=== PATIENT | female | born 1945 | race Caucasian/White ===

== ENCOUNTER 2020-11-15 06:03 | Outpatient (REF) | payer MEDICARE, SELFPAY ==
[2020-11-15 07:25] LABS: Cholesterol 210 mg/dL; HDL Cholesterol 57 mg/dL; LDL Cholesterol Calculated 129 mg/dl; Triglycerides 123 mg/dL
[2020-11-15 07:49] LABS: Free T4 (Free Thyroxine) 1.03 ng/dL (0.71-1.85); Thyroid Stimulating Hormone 2.37 uIU/mL (0.32-4.0)
== END 2020-11-15 06:04 | disposition home or self-care (01) ==
LOC: HO.LAB 06:03
PROVIDERS: Visit Provider Internal Medicine
DX: E03.9 Hypothyroidism, unspecified (principal); E78.5 Hyperlipidemia, unspecified; M19.041 Primary osteoarthritis, right hand; M19.042 Primary osteoarthritis, left hand; Z78.0 Asymptomatic menopausal state
CPT/HCPCS: 36415; 80061; 82306; 84439; 84443

== ENCOUNTER 2021-05-11 09:05 | Outpatient (REF) | payer MEDICARE, SELFPAY ==
--- NOTE | ~2021-05-11 | MM_ITS ---
EXAMINATION: BONE DENSITOMETRY CLINICAL INDICATION: Menopause. COMPARISON: Previous BD dated 01/02/2019 and baseline BD dated 01/29/2009. TECHNIQUE: Using a [employer] DXA System (software version: 13.1) manufactured by [employer], dual-energy x-ray absorptiometry was performed of the lumbar spine and left hip. The images are of good technical quality. Summary results are attached. FINDINGS: AP SPINE L1-L2 (excluding L3 and L4): The data of L1-L4 has been changed to exclude the L3 and L4 vertebral bodies, because degenerative changes at these levels may cause overestimation of lumbar spine density. Current: BMD 1.030 g/cm2, Z-score 0.9, T-score -1.1, osteopenia, 2.0% decrease from previous, 8.2% increase from baseline (<5% change is not significant). Prior: BMD 1.051 g/cm2. Baseline: BMD 0.952 g/cm2. LEFT FEMUR, NECK: Current: BMD 0.916 g/cm2, Z-score 1.3, T-score -0.9, normal. Prior: BMD 0.925 g/cm2. Baseline: BMD 0.918 g/cm2. LEFT FEMUR, TOTAL: Current: BMD 1.062 g/cm2, Z-score 2.4, T-score 0.4, normal, 1.4% increase from previous, 3.5% increase from baseline (<5% change is not significant). Prior: BMD 1.047 g/cm2. Baseline: BMD 1.026 g/cm2. IDENTIFIED RISK FACTORS: Menopause. HISTORY OF FRACTURE: None listed. MEDICATIONS: Calcium, vitamin D. MM/XR DEXA axial skeleton IMPRESSION: 1. DIAGNOSIS: Osteopenia based on the lowest T-score value of -1.1 in the lumbar spine applying World Health Organization criteria. 2. 10-YEAR FRACTURE RISK PREDICTION, FRAX: Major osteoporotic fracture (clinical spine, forearm, hip or shoulder) 10.6%. Hip fracture 1.8%. 3. Treatment Recommendations: NOF guidelines recommend consideration for treatment in postmenopausal women and men age 50 and older presenting with the following: -A hip or vertebral (clinical or morphometric) fracture. -T-score less than or equal to -2.5 at the femoral neck or spine after appropriate evaluation to exclude secondary causes. -Low bone mass at the hip or spine and a 10-year fracture probability by FRAX of greater than or equal to 3% for hip fracture or greater than or equal to 20% for major osteoporotic fracture based on the [place] adapted WHO algorithm. 4. Other Recommendations: All treatment decisions require clinical judgment and consideration of individual patient factors, including patient preferences, comorbidities, previous drug use, risk factors not captured in the FRAX model (e.g. frailty, falls, vitamin D deficiency, increased bone turnover, interval significant decline in bone density) and possible under or overestimation of fracture risk by FRAX. Additional medical evaluation for secondary cause of low bone mineral density may be appropriate. FUTURE SCAN RECOMMENDATION: People with diagnosed cases of osteoporosis or at high risk for fracture should have regular bone mineral density tests. For patients eligible for Medicare, routine testing is allowed once every 2 years. The testing frequency can be increased to one year for patients who have rapidly progressing disease, those who are receiving or discontinuing medical therapy to restore bone mass, or have additional risk factors.
--- NOTE | ~2021-05-11 | MM_ITS ---
EXAMINATION: MM SCREENING DIGITAL BREAST TOMOSYNTHESIS, BILATERAL CLINICAL INFORMATION: Screening. Asymptomatic. The lifetime risk of breast cancer based on the Tyrer-Cuzick Model is 2%. COMPARISON: Mammography: 01/02/2019, 05/25/2017, 04/21/2016 TECHNIQUE: Digital breast tomosynthesis is performed in both the craniocaudal and mediolateral oblique views along with computer-aided detection (CAD). Synthesized 2D images are generated from the tomosynthesis. FINDINGS: There are scattered areas of fibroglandular density (ACR BI-RADS breast composition Category b). There are no significant masses, abnormal calcifications, or other abnormalities. Parenchymal pattern is similar to prior studies. No developing density. The axilla and skin contours are unremarkable. MM/MM tomosynthesis screening BI IMPRESSION: No mammographic evidence of malignancy. ASSESSMENT: BI-RADS 1: Negative RECOMMENDATION: Routine annual mammography screening. This patient's information was entered into a reminder system with a target due date for their next mammogram.
== END 2021-05-11 09:06 | disposition home or self-care (01) ==
LOC: HO.MAMMO 09:05
PROVIDERS: Visit Provider Internal Medicine
DX: Z12.31 Encounter for screening mammogram for malignant neoplasm of breast (principal); Z13.820 Encounter for screening for osteoporosis; M85.80 Other specified disorders of bone density and structure, unspecified site; Z78.0 Asymptomatic menopausal state; Z79.899 Other long term (current) drug therapy
CPT/HCPCS: 77063; 77067; 77080

== ENCOUNTER 2021-05-31 06:03 | Outpatient (REF) | payer MEDICARE, SELFPAY ==
[2021-05-31 07:10] LABS: MANUAL DIFF FLAG NO
[2021-05-31 07:17] LABS: Basophils Percent Auto 0.3 % (0-2); Eosinophils Absolute Auto 0.3 X10*3/uL (0.0-0.4); Eosinophils Percent Auto 3.7 % (0-4); Hematocrit 39.5 % (37-47); Hemoglobin 12.6 g/dl (12.0-16.0); Imm Gran Abs Auto 0.02 X10*3/uL (0.00-0.03); Imm Gran Pct Auto 0.3 % (0.0-0.4); Lymphocytes Percent Auto 41.1 % (20-40); Mean Corpuscular HGB Conc 31.9 g/dl (31.0-35.0); Mean Corpuscular Hemoglobin 29.6 pg (27.0-33.0); Mean Corpuscular Volume 92.9 fL (80-98); Mean Platelet Volume 9.7 fL (9.4-12.3); Monocytes Absolute Auto 0.7 X10*3/uL (0.1-1.2); Monocytes Percent Auto 9.6 % (2-11); Neutrophils Absolute Auto 3.3 X10*3/uL (2.0-8.3); Platelet Count 207 X10*3/uL (160-400); Red Blood Count 4.25 X10*6/uL (4.20-5.50); Red Cell Distribution Width 13.2 % (11.0-16.0); White Blood Count 7.4 X10*3/uL (4.8-10.8)
[2021-05-31 08:02] LABS: Free T4 (Free Thyroxine) 1.06 ng/dL (0.71-1.85); Thyroid Stimulating Hormone 2.48 uIU/mL (0.32-4.0); Vitamin D 25-OH Total 63.4 ng/mL (>30)
== END 2021-05-31 06:04 | disposition home or self-care (01) ==
LOC: HO.LAB 06:03
PROVIDERS: PCP Internal Medicine; Visit Provider Internal Medicine
DX: E03.9 Hypothyroidism, unspecified (principal); Z78.0 Asymptomatic menopausal state
CPT/HCPCS: 36415; 82306; 84439; 84443; 85025

== ENCOUNTER 2022-07-06 05:59 | Outpatient (REF) | payer MEDICARE, SELFPAY ==
[2022-07-06 07:52] LABS: Cholesterol 251 mg/dL; HDL Cholesterol 55 mg/dL; LDL Cholesterol Calculated 166 mg/dl; Triglycerides 154 mg/dL
[2022-07-06 08:17] LABS: Free T4 (Free Thyroxine) 0.98 ng/dL (0.71-1.85); Thyroid Stimulating Hormone 3.02 uIU/mL (0.32-4.0); Vitamin D 25-OH Total 63.3 ng/mL (>30)
== END 2022-07-06 06:00 | disposition home or self-care (01) ==
LOC: HO.LAB 05:59
PROVIDERS: PCP Internal Medicine; Visit Provider Internal Medicine
DX: E03.9 Hypothyroidism, unspecified (principal); M85.88 Other specified disorders of bone density and structure, other site; N95.9 Unspecified menopausal and perimenopausal disorder
CPT/HCPCS: 36415; 80061; 82306; 84439; 84443

== ENCOUNTER 2022-12-29 06:02 | Outpatient (REF) | payer MEDICARE, SELFPAY ==
[2022-12-29 07:42] LABS: Anion Gap 14 (12-20); Blood Urea Nitrogen 11 mg/dL (9-16); Calcium 10.2 mg/dL (8.4-10.2); Carbon Dioxide 26 mmol/L (22-29); Chloride 105 mmol/L (96-108); Estimated Glomerular Filt Rate > 60; Glucose Fasting 107 mg/dL (60-99); Potassium 4.4 mmol/L (3.3-5.1); Sodium 141 mmol/L (135-145)
[2022-12-29 08:04] LABS: Free T4 (Free Thyroxine) 0.93 ng/dL (0.71-1.85); Thyroid Stimulating Hormone 3.15 uIU/mL (0.32-4.0); Vitamin D 25-OH Total 59.4 ng/mL (>30)
== END 2022-12-29 06:03 | disposition home or self-care (01) ==
LOC: HO.LAB 06:02
PROVIDERS: PCP Internal Medicine; Visit Provider Internal Medicine
DX: E03.9 Hypothyroidism, unspecified (principal); M85.88 Other specified disorders of bone density and structure, other site; Z78.0 Asymptomatic menopausal state
CPT/HCPCS: 36415; 80048; 82306; 84439; 84443

== ENCOUNTER 2023-01-01 10:24 | Outpatient (AMB) | payer MEDICARE, SELFPAY ==
--- NOTE | 2023-01-01 10:58 | A.OFFPC_ITS ---
Vital Signs 01/01/23 11:14 Height 5 ft 1 in Weight 138 lb BMI 26.0 BP 110/70 Blood Pressure Location Lt brachial Position Sitting Pulse 69 Pulse Source Pulse Oximeter Pulse Oximetry (%) 99 Oxygen Delivery Method Room Air Intake Visit Reasons: 6 month ffup thyroid Intake Note: Pt is here today for her 6 months f/u thyroid Allergies No Known Allergies Allergy (Verified 01/01/23 11:29) Medication List - Last Reconciled 01/01/23 by Barby Mckoy MD calcium carbonate (Calcium) 600 mg PO DAILY cholecalciferol (vitamin D3) 50 mcg PO DAILY levothyroxine 50 mcg PO DAILY Tobacco use date assessed: 01/01/23 Fall risk assessment: No Falls in past year Last assessed Fall Risk: 01/01/23 HPI 6 month ffup thyroid HPI Details 78-year-old lady with hypothyroidism, he re today for her follow-up. She has been doing well on present levothyroxine dose, at 50 mcg daily, with latest thyroid levels within normal limits. She has osteopenia of lumbar spine, due for repeat bone density scan. No history of fractures Has been having intermittent episodes of joint stiffness and pain in fingers of both hands, as well as decreased range of motion in left shoulder joint specially in abduction due to pain. History of trauma or strenuous exertion. Has a recurrent slightly pruritic rash under both breasts and inguinal area worse with warm weather [facility] Medical History (Updated 11/15/23 @ 16:56 by Barby Mckoy MD) Tendinitis of left shoulder Osteopenia of lumbar spine Osteoarthritis of fingers of both hands Breast cancer screening by mammogram Menopause Acquired hypothyroidism Surgical History No pertinent past surgical history Family History Father Medical history non-contributory Mother Medical history non-contributory Brother No problems noted. Brother No problems noted. Son No problems noted. Daughter No problems noted. Social History Housing: House Alcohol intake: never Patient Tobacco Use Status: Never used Tobacco e-Cigarette/Vaping Use: Never Used Second Hand Smoke Exposure: No Current occupational status: unemployed Cognitive needs: No Hearing needs: No Vision needs: No Questionnaire PHQ-9 Over the last 2 weeks, how often have you been bothered by any of the following problems? 1. Little interest or pleasure in doing things: more than half the days 2. Feeling down, depressed, or hopeless: not at all 3. Trouble falling or staying asleep, or sleeping too much: not at all 4. Feeling tired or having little energy: not at all 5. Poor appetite or overeating: not at all 6. Feeling bad about yourself - or that you are a failure or have let yourself or your family down: not at all 7. Trouble concentrating on things, such as reading the newspaper or watching television: not at all 8. Moving or speaking so slowly that other people could have noticed. Or the opposite - being so fidgety or restless that you have been moving around a lot more than usual: not at all 9. Thoughts that you would be better off or of hurting yourself in some way: not at all Total score: 2 Depression Screening Interpretation: Negative 79066 - PHQ-9 Billing: Yes Source: Developed by Drs. Abram Morfin, Erlinda Lindsay, Carlos Bueno and colleagues, with an educational fredy from [employer]. Thrive Questionnaire Declines Thrive assessment: No Date Thrive assessed: 01/01/23 I am a: Patient What is your living situation today?: I have a steady place to live Within the past 12 months, did the food you bought not last and you didn't have the money to get more?: Never true Within the past 12 months, did you worry whether your food would run out before you got money to buy more?: Never true Do you have trouble paying for medicines?: No Do you have trouble getting transportation to medical appointments?: No Do you have trouble paying your heating and electricity bill?: No Do you have trouble taking care of your child, family member or friend?: No Do you have trouble with day-to-day activities such as bathing, preparing meals, shopping, managing finances, etc.?: No Are you currently unemployed and looking for a job?: No Are you interested in more education?: No AUDIT C Alcohol Use Questionnaire (AUDIT-C) 1. How often do you have a drink containing alcohol?: Never Total Score: 0 ASHLEY-7 AMB Questionnaire ASHLEY-7 Date ASHLEY - 7 assessed: 01/01/23 Feeling nervous, anxious, or on edge: 0 = Not at all Not being able to stop or control worryin = Not at all Worrying too much about different things: 0 = Not at all Trouble relaxin = Not at all Being so restless that it is hard to sit still: 0 = Not at all Becoming easily annoyed or irritable: 0 = Not at all Feeling afraid as if something awful might happen: 0 = Not at all Total ASHLEY-7 score (0-4 normal; 5-9 mild; 10-14 moderate; 15-21 severe): 0 Source: Developed by Drs. Abram Morfin, Erlinda Lindsay, Carlos Bueno and colleagues, with an educational fredy from [employer]. ASHLEY-7 Assessment Billing ASHLEY-7 Assessment Tool: ASHLEY-7 Assessment 08486 Review of Systems Const Denies body aches, Denies fatigue, Denies fever(s), Denies headache(s) and Denies weakness ENT Denies dizziness, Denies headache(s), Denies nasal congestion, Denies nasal discharge and Denies sore throat Card Denies chest pain, Denies lightheadedness, Denies palpitations and Denies dyspnea Resp Denies chest congestion, Denies cough, Denies dyspnea and Denies wheezing GI Denies abdominal pain, Denies change in bowel habits and Denies heartburn Musc Reports as per HPI, Reports arthralgias (Fingers both hands and left shoulder), Denies joint swelling, Denies muscle weakness and Reports stiffness Skin/Breast Denies lesions and Denies rash Neuro Denies dizziness, Denies headache(s) and Denies weakness Endo Denies fatigue, Denies polydipsia, Denies polyuria and Denies palpitations Corey/Lymph Denies easy bruising Aller/Immun Denies seasonal rhinorrhea and Denies wheezing Physical exam (Primary Care) Vital Signs: Last Vital Signs Pulse 69 01/01/23 11:14 BP 110/70 01/01/23 11:14 Pulse Ox 99 01/01/23 11:14 Oxygen Delivery Method Room Air 01/01/23 11:14 BMI result Body Mass Index 26.0 Tobacco/Smoking Status: Tobacco use Status Tobacco use date assessed 01/01/23 01/01/23 11:01 Patient Tobacco Use Status Never used Tobacco 01/01/23 11:00 e-Cigarette/Vaping Use Never Used 01/01/23 11:00 PHQ-9: PHQ-9 Score PHQ-9: Total score 2 01/01/23 11:31 Depression Screening Interpretation: Negative Thrive Assessment: Date of Thrive Assessment Date Thrive assessed 01/01/23 01/01/23 11:19 Const General: cooperative, comfortable and no acute distress Orientation/consciousness: patient oriented x3 Limitations: no limitations [facility] General nose exam: No nasal discharge present Mouth: oropharynx normal and moist mucous membranes Eyes Pupils: Equal, round and reactive pupils present Neck Other: Thyroid nonpalpable Neck: Yes full ROM, Yes no lymphadenopathy and Yes supple Resp Effort & Inspection: normal respiratory effort and able to speak in complete sentences Auscultation: clear to auscultation bilaterally Cardio Rate: regular rate Rhythm: regular rhythm Heart sounds: S1 normal heart sound present and S2 normal heart sound present GI Inspection: Yes normal to inspection Palpation (GI): Soft to palpation, nontender and no masses Auscultation: normal bowel sounds Back/Spine/Pelvis Back: No back tenderness Skin Other: Erythematous patch under both breasts Neuro General: patient oriented x3, gait normal, tone normal, moves all extremities, Normal light touch and pain sensation and no focal motor deficits Cranial nerves: Yes Equal, round and reactive pupils present Cognition (Neuro): normal cognition Gait exam (Neuro): Normal gait present Motor exam (neuro): 5/5 motor strength present throughout Extrem Other: Positive Heberden's nodes noted in fingers of both hands right more than the left General: Yes full ROM, Yes no pedal edema and Yes normal gait Left upper extremity: shoulder/upper arm Details: abnormal ROM (Due to pain on abduction more than 90 degrees) Details: pain with active ROM Details: in ABduction Results Reviewed Results Reviewed: RUN: 01/01/23 1129 PAGE 1 [facility] [address] [place] [id number] Supervisor Scouring Pads: Yunior Mcqueen M.D. Specimen Inquiry Name: Clarisa Marina Age/Sex: 77/F : 1945 Unit#: [id number] Attend Dr: Barby Mckoy MD Re12/29/22 Status: DEP REF Location: .LAB Dis ch: SPEC : [id number] LEONEL: 12/29/22 STATUS: COMP REQ : [id number] RECD: 12/29/[address]: Barby Mckoy MD COMP: 12/29/22 ENTERED: 12/29/[address]: ORDERED: Met Prof Fast, Vitamin D 25-OH, Free T4, TSH Test Result Flag Reference Site Sodium 141 135-145 mmol/L Potassium 4.4 3.3-5.1 mmol/L CL 105 96-108 mmol/L CO2 26 22-29 mmol/L Gap 14 12-20 BUN 11 9-16 mg/dL Creat 0.80 0.5-1.4 mg/dL EGFR > 60 NOTE: For -[place]yr[place] individuals, multiply the result by 1.210. Chronic Kidney Disease: Estimated GFR < 60 mL/min/1.73m2 Severe Kidney Disease: Estimated GFR < 15 mL/min/1.73m2 FBS 107 H 60-99 mg/dL A fasting glucose from 100-125 mg/dl is considered impaired (pre-diabetes). CA 10.2 8.4-10.2 mg/dL Vit D 25-OH Tot 59.4 >30 ng/mL Health Based Reference Values* < 20 ng/mL Deficient 20-30 ng/mL Insufficient > 30 ng/mL Sufficient *Sandrita JULIAN. N Engl J Med. 2007;[id number]:266-280 Care must be taken in interpreting Vitamin D results from different laboratories and methodologies. Published data demonstrated that results from patients undergoing hemodialysis may show a negative bias when tested with various automated 25-OH vitamin D assays when compared to LC-MS/MS. When testing samples from patients whose predominant form of Vitamin D is Vitamin D2, such as patients receiving Vit ross D2 supplementation, results that are subtherapeutic should be confirmed with another method such as LC-MS/MS. Free T4 0.93 0.71-1.85 ng/dL TSH 3rd Gen. 3.15 0.32-4.0 uIU/mL Note: A sustained TSH level above 2.5 uIU/mL may warrant further investigation. TSH 3rd Generation ([facility]) Assessment and Plan Assessment & Plan (1) Osteopenia of lumbar spine: Code(s): M85.88 - Other specified disorders of bone density and structure, other site Plan: Ordered bone density scan, start taking vitamin-D 3 replacement least 2000 units daily, and adequate calcium from dietary sources, encouraged to do regular weight-bearing exercise (2) Osteoarthritis of fingers of both hands: Code(s): M19.041 - Primary osteoarthritis, right hand; M19.042 - Primary osteoarthritis, left hand Plan: May try taking Tylenol arthritis 650 mg per tablet to take 1 tablet every 8 hours as needed for joint pain or may try massaging diclofenac gel 1% to affected joints 3 to 4 times a day as needed. (3) Acquired hypothyroidism: Code(s): E03.9 - Hypothyroidism, unspecified Plan: Continue with current dose of levothyroxine (4) Tendinitis of left shoulder: Code(s): M77.8 - Other enthesopathies, not elsewhere classified Plan: Referred for physical therapy (5) Erythema intertrigo: Code(s): L30.4 - Erythema intertrigo Plan: Prescription sent for clotrimazole-betamethasone 1-0.05 % 1 appl topical BID PRN 15 grams 1RF rash 10 days Orders: Orders PT Evaluation and Treatment 01/01/23 M77.8 - Other enthesopathies, not elsewhere classified XR DEXA axial skeleton 05/15/23 M85.88 - Other specified disorders of bone density and structure, other site, N95.9 - Unspecified menopausal and perimenopausal disorder Medications: New clotrimazole-betamethasone 1-0.05 % 1 appl topical BID PRN 15 grams 1RF rash 10 days Refilled levothyroxine 50 mcg PO DAILY 90 tabs 3RF E03.9 - Hypothyroidism, unspecified cholecalciferol (vitamin D3) 50 mcg PO DAILY 90 caps 3RF M85.88 - Other specified disorders of bone density and structure, other site Coding Level of Care Code Est Pt Level 4 (50123) Diagnoses Osteopenia of lumbar spine M85.88 Osteoarthritis of fingers of both hands M19.041; M19.042 Acquired hypothyroidism E03.9 Tendinitis of left shoulder M77.8 Erythema intertrigo L30.4 Additional Codes ASHLEY-7 Assessment Billing - ASHLEY-7 Assessment Tool: ASHLEY-7 Assessment [id number] ([id number])
[2023-01-01 11:14] VITALS: BP 110/70; PULSE 69; O2SAT 99; BMI 26.0
== END 2023-01-01 11:54 | disposition home or self-care (01) ==
LOC: HO.HMGC 10:24
PROVIDERS: PCP Internal Medicine; Visit Provider Internal Medicine
DX: M85.88 Other specified disorders of bone density and structure, other site (principal); M19.041 Primary osteoarthritis, right hand; M19.042 Primary osteoarthritis, left hand; E03.9 Hypothyroidism, unspecified; M77.8 Other enthesopathies, not elsewhere classified; L30.4 Erythema intertrigo
CPT/HCPCS: 99214

== ENCOUNTER 2023-05-15 08:38 | Outpatient (REF) | payer MEDICARE, SELFPAY ==
--- NOTE | ~2023-05-15 | MM_ITS ---
EXAMINATION: BONE DENSITOMETRY CLINICAL INDICATION: Osteopenia. COMPARISON: Previous BD dated 05/11/2021 and baseline BD dated 01/29/2009. TECHNIQUE: Using a [employer] DXA System (software version: 13.1) manufactured by [employer], dual-energy x-ray absorptiometry was performed of the lumbar spine and left hip. The images are of good technical quality. Summary results are attached. FINDINGS: LEFT FEMUR, NECK: Current: BMD 0.976 g/cm2, Z-score 1.8, T-score -0.4, normal. Prior: BMD 0.916 g/cm2. Baseline: BMD 0.918 g/cm2. LEFT FEMUR, TOTAL: Current: BMD 1.084 g/cm2, Z-score 2.7, T-score 0.6, normal, 2.1% increase from previous, 5.7% increase from baseline (<5% change is not significant). Prior: BMD 1.062 g/cm2. Baseline: BMD 1.026 g/cm2. AP SPINE L1-L2 (excluding L3 and L4): The data of L1-L4 has been changed to exclude the L3 and L4 vertebral bodies, because degenerative sclerosis at these levels may cause overestimation of lumbar spine density. Current: BMD 0.982 g/cm2, Z-score 0.5, T-score -1.5, osteopenia, 4.7% decrease from previous, 3.2% increase from baseline (<5% change is not significant). Prior: BMD 1.030 g/cm2. Baseline: BMD 0.952 g/cm2. IDENTIFIED RISK FACTORS: Menopause. HISTORY OF FRACTURE: None listed. MEDICATIONS: Calcium. MM/XR DEXA axial skeleton IMPRESSION: 1. DIAGNOSIS: Osteopenia based on the lowest T-score value of -1.5 in the lumbar spine applying World Health Organization criteria. 2. 10-YEAR FRACTURE RISK PREDICTION, FRAX: Major osteoporotic fracture (clinical spine, forearm, hip or shoulder) 10.0%. Hip fracture 1.5%. 3. Treatment Recommendations: NOF guidelines recommend consideration for treatment in postmenopausal women and men age 50 and older presenting with the following: -A hip or vertebral (clinical or morphometric) fracture. -T-score less than or equal to -2.5 at the femoral neck or spine after appropriate evaluation to exclude secondary causes. -Low bone mass at the hip or spine and a 10-year fracture probability by FRAX of greater than or equal to 3% for hip fracture or greater than or equal to 20% for major osteoporotic fracture based on the [place] adapted WHO algorithm. 4. Other Recommendations: All treatment decisions require clinical judgment and consideration of individual patient factors, including patient preferences, comorbidities, previous drug use, risk factors not captured in the FRAX model (e.g. frailty, falls, vitamin D deficiency, increased bone turnover, interval significant decline in bone density) and possible under or overestimation of fracture risk by FRAX. Additional medical evaluation for secondary cause of low bone mineral density may be appropriate. FUTURE SCAN RECOMMENDATION: People with diagnosed cases of osteoporosis or at high risk for fracture should have regular bone mineral density tests. For patients eligible for Medicare, routine testing is allowed once every 2 years. The testing frequency can be increased to one year for patients who have rapidly progressing disease, those who are receiving or discontinuing medical therapy to restore bone mass, or have additional risk factors.
--- NOTE | ~2023-05-15 | MM_ITS ---
EXAMINATION: MM SCREENING DIGITAL BREAST TOMOSYNTHESIS, BILATERAL CLINICAL INFORMATION: Screening. Asymptomatic. The lifetime risk of breast cancer based on the Tyrer-Cuzick Model is 1.3%. COMPARISON: Mammography: This study is compared with prior exams dating back to 2019. TECHNIQUE: Digital breast tomosynthesis is performed in both the craniocaudal and mediolateral oblique views along with computer-aided detection (CAD). Synthesized 2D images are generated from the tomosynthesis. FINDINGS: There are scattered areas of fibroglandular density (ACR BI-RADS breast composition Category b). There are no significant masses, abnormal calcifications, or other abnormalities. MM/MM tomosynthesis screening BI IMPRESSION: No mammographic evidence of malignancy. ASSESSMENT: BI-RADS BI-RADS 1 - Negative RECOMMENDATION: Routine annual mammography screening. 1 year F/U This examination should not preclude the clinical evaluation of a suspicious palpable abnormality. This patient's information was entered into a reminder system with a target due date for their next mammogram.
== END 2023-05-15 08:39 | disposition home or self-care (01) ==
LOC: HO.MAMMO 08:38
PROVIDERS: PCP Internal Medicine; Visit Provider Internal Medicine
DX: Z12.31 Encounter for screening mammogram for malignant neoplasm of breast (principal); Z13.820 Encounter for screening for osteoporosis; Z78.0 Asymptomatic menopausal state; M85.88 Other specified disorders of bone density and structure, other site
CPT/HCPCS: 77063; 77067; 77080

== ENCOUNTER → 2023-05-15 09:00 | Outpatient (BNV) | payer MEDICARE, SELFPAY | PROVIDERS: PCP Internal Medicine; Visit Provider Radiology Diagnostic Radiology | DX: Z12.31 Encounter for screening mammogram for malignant neoplasm of breast (principal) | CPT/HCPCS: 77063; 77067 ==

== ENCOUNTER 2024-01-03 08:27 | Outpatient (AMB) | payer MEDICARE, SELFPAY ==
--- NOTE | 2024-01-03 08:30 | MHC.PC.OV ---
Vital Signs 01/03/24 08:31 Height 5 ft 1 in Weight 141 lb BMI 26.6 BP 122/68 Blood Pressure Location Lt brachial Position Sitting Pulse 72 Pulse Source Pulse Oximeter Pulse Oximetry (%) 97 Oxygen Delivery Method Room Air Intake Visit Reasons: 1yr follow up thyroid, requesting early Intake Note: Pt is here today for her f/u, pt didn't get labs done Allergies No Known Allergies Allergy (Verified 01/01/23 11:29) Medication List - Last Reconciled 07/23/24 by Barby Mckoy MD calcium carbonate (Calcium 600) 600 mg PO DAILY cholecalciferol (vitamin D3) 50 mcg PO DAILY clotrimazole-betamethasone 1-0.05 % 1 appl topical BID PRN 10 days levothyroxine 50 mcg PO DAILY Tobacco use date assessed: 01/03/24 Fall risk assessment: No Falls in past year Last assessed Fall Risk: 01/03/24 Dental Screening Dental Screen Date: 01/03/24 Did you have a dental visit in the last 12 months?: Yes Did you have a dental problem in the last 6 months where you did not have access to dental care?: No Was dental information given to patient?: Patient has dentist HPI 1yr follow up thyroid, requesting early HPI Details 78-year-old lady with acquired hypothyroidism, osteoarthritis, osteopenia lumbar spine and hyperlipidemia, here today for follow-up. Patient has been feeling well , compliant with taking her medications stays active. Patient also reports having recurrent pruritic rash under both breasts, usually appearing during warmer months [facility] Medical History (Updated 01/03/24 @ 09:15 by Barby Mckoy MD) Impaired fasting glucose Hyperlipidemia Tendinitis of left shoulder Osteopenia of lumbar spine Osteoarthritis of fingers of both hands Breast cancer screening by mammogram Menopause Acquired hypothyroidism Surgical History No pertinent past surgical history Family History Father Medical history non-contributory Mother Medical history non-contributory Brother No problems noted. Brother No problems noted. Son No problems noted. Daughter No problems noted. Social History Housing: House Alcohol intake: never Patient Tobacco Use Status: Never used Tobacco e-Cigarette/Vaping Use: Never Used Second Hand Smoke Exposure: No Current occupational status: unemployed Cognitive needs: No Hearing needs: No Vision needs: No Questionnaire PHQ-9 Over the last 2 weeks, how often have you been bothered by any of the following problems? 1. Little interest or pleasure in doing things: not at all 2. Feeling down, depressed, or hopeless: not at all 3. Trouble falling or staying asleep, or sleeping too much: not at all 4. Feeling tired or having little energy: not at all 5. Poor appetite or overeating: not at all 6. Feeling bad about yourself - or that you are a failure or have let yourself or your family down: not at all 7. Trouble concentrating on things, such as reading the newspaper or watching television: not at all 8. Moving or speaking so slowly that other people could have noticed. Or the opposite - being so fidgety or restless that you have been moving around a lot more than usual: not at all 9. Thoughts that you would be better off or of hurting yourself in some way: not at all Total score: 0 Depression Screening Interpretation: Negative Depression Screening Done: Yes 49557 - PHQ-9 Billing: Yes Source: Developed by Drs. Abram Morfin, Erlinda Lindsay, Carlos Bueno and colleagues, with an educational fredy from [employer]. Thrive Questionnaire Date Thrive assessed: 01/03/24 I am a: Patient What is your living situation today?: I have a steady place to live Within the past 12 months, did the food you bought not last and you didn't have the money to get more?: Never true Within the past 12 months, did you worry whether your food would run out before you got money to buy more?: Never true Do you have trouble paying for medicines?: No Do you have trouble getting transportation to medical appointments?: No Do you have trouble paying your heating and electricity bill?: No Do you have trouble taking care of your child, family member or friend?: No Do you have trouble with day-to-day activities such as bathing, preparing meals, shopping, managing finances, etc.?: No Are you currently unemployed and looking for a job?: No Are you interested in more education?: No THRIVE Score: 0 AUDIT C Alcohol Use Questionnaire (AUDIT-C) 1. How often do you have a drink containing alcohol?: Never Total Score: 0 ASHLEY-7 AMB Questionnaire ASHLEY-7 Date ASHLEY - 7 assessed: 01/03/24 Feeling nervous, anxious, or on edge: 0 = Not at all Not being able to stop or control worryin = Not at all Worrying too much about different things: 0 = Not at all Trouble relaxin = Not at all Being so restless that it is hard to sit still: 0 = Not at all Becoming easily annoyed or irritable: 0 = Not at all Feeling afraid as if something awful might happen: 0 = Not at all Total ASHLEY-7 score (0-4 normal; 5-9 mild; 10-14 moderate; 15-21 severe): 0 Source: Developed by Drs. Abram Morfin, Erlinda Lindsay, Carlos Bueno and colleagues, with an educational fredy from [employer]. ASHLEY-7 Assessment Billing ASHLEY-7 Assessment Tool: ASHLEY-7 Assessment 41563 Review of Systems Const Denies body aches, Denies fatigue, Denies fever(s), Denies headache(s) and Denies weakness ENT Denies dizziness, Denies headache(s), Denies nasal congestion, Denies nasal discharge and Denies sore throat Card Denies chest pain, Denies lightheadedness, Denies palpitations and Denies dyspnea Resp Denies chest congestion, Denies cough, Denies dyspnea and Denies wheezing GI Denies abdominal pain, Denies change in bowel habits and Denies heartburn Musc Reports as per HPI, Reports arthralgias (Fingers both hands and left shoulder), Denies joint swelling, Denies muscle weakness and Reports stiffness Skin/Breast Denies lesions and Denies rash Neuro Denies dizziness, Denies headache(s) and Denies weakness Endo Denies fatigue, Denies polydipsia, Denies polyuria and Denies palpitations Corey/Lymph Denies easy bruising Aller/Immun Denies seasonal rhinorrhea and Denies wheezing Physical exam (Primary Care) Vital Signs: Last Vital Signs Pulse 72 01/03/24 08:31 BP 122/68 01/03/24 08:31 Pulse Ox 97 01/03/24 08:31 Oxygen Delivery Method Room Air 01/03/24 08:31 BMI result Body Mass Index 26.6 Tobacco/Smoking Status: Tobacco use Status Tobacco use date assessed 01/03/24 01/03/24 08:34 Patient Tobacco Use Status Never used Tobacco 01/03/24 08:34 e-Cigarette/Vaping Use Never Used 01/03/24 08:34 PHQ-9: PHQ-9 Score PHQ-9: Total score 0 01/03/24 09:15 Depression Screening Interpretation: Negative Thrive Assessment: Date of Thrive Assessment Date Thrive assessed 01/03/24 01/03/24 08:34 Const General: cooperative, comfortable and no acute distress Orientation/consciousness: patient oriented x3 Limitations: no limitations HENMT General nose exam: No nasal discharge present Mouth: oropharynx normal and moist mucous membranes Eyes Pupils: Equal, round and reactive pupils present Neck Other: Thyroid nonpalpable Neck: Yes full ROM, Yes no lymphadenopathy and Yes supple Resp Effort & Inspection: normal respiratory effort and able to speak in complete sentences Auscultation: clear to auscultation bilaterally Cardio Rate: regular rate Rhythm: regular rhythm Heart sounds: S1 normal heart sound present and S2 normal heart sound present GI Inspection: Yes normal to inspection Palpation (GI): Soft to palpation, nontender and no masses Auscultation: normal bowel sounds Back/Spine/Pelvis Back: No back tenderness Skin Other: Erythematous slightly moist rash under both breasts Neuro General: patient oriented x3, gait normal, tone normal, moves all extremities, Normal light touch and pain sensation and no focal motor deficits Cranial nerves: Yes Equal, round and reactive pupils present Cognition (Neuro): normal cognition Gait exam (Neuro): Normal gait present Motor exam (neuro): 5/5 motor strength present throughout Extrem Other: Positive Heberden's nodes noted in fingers of both hands right more than the left General: Yes full ROM, Yes no pedal edema and Yes normal gait Left upper extremity: shoulder/upper arm Details: abnormal ROM (Due to pain on abduction more than 90 degrees) Details: pain with active ROM Details: in ABduction Coding Level of Care Code Est Pt Level 4 (97591) Complex EM visit Add On G2211 Diagnoses Impaired fasting glucose R73.01 Hyperlipidemia E78.5 Osteopenia of lumbar spine M85.88 Acquired hypothyroidism E03.9 Rash and nonspecific skin eruption R21 Additional Codes ASHLEY-7 Assessment Billing - ASHLEY-7 Assessment Tool: ASHLEY-7 Assessment 21240 ([id number])
[2024-01-03 08:31] VITALS: BP 122/68; PULSE 72; O2SAT 97; BMI 26.6
== END 2024-01-03 09:15 | disposition home or self-care (01) ==
PROVIDERS: Visit Provider Internal Medicine
DX: R73.01 Impaired fasting glucose (principal); E78.5 Hyperlipidemia, unspecified; M85.88 Other specified disorders of bone density and structure, other site; E03.9 Hypothyroidism, unspecified; R21 Rash and other nonspecific skin eruption
CPT/HCPCS: 99499

== ENCOUNTER 2024-01-04 06:00 | Outpatient (REF) | payer MEDICARE, SELFPAY ==
[2024-01-04 07:21] LABS: Alanine Aminotransferase 26 U/L (0-31); Anion Gap 10 (12-20); Aspartate Amino Transferase 25 U/L (5-31); Blood Urea Nitrogen 18 mg/dL (9-16); Calcium 9.7 mg/dL (8.4-10.2); Carbon Dioxide 29 mmol/L (22-29); Chloride 106 mmol/L (96-108); Cholesterol 238 mg/dL (<200); Estimated Glomerular Filt Rate > 60; Glucose Fasting 112 mg/dL (60-99); HDL Cholesterol 54 mg/dL (>40); LDL Cholesterol Calculated 159 mg/dL (<100); Potassium 4.4 mmol/L (3.3-5.1); Sodium 141 mmol/L (135-145); Triglycerides 128 mg/dL (<150)
[2024-01-04 07:41] LABS: Free T4 (Free Thyroxine) 0.85 ng/dL (0.71-1.85); Thyroid Stimulating Hormone 3.01 uIU/mL (0.32-4.0); Vitamin D 25-OH Total 58.2 ng/mL (>30)
== END 2024-01-04 06:01 | disposition home or self-care (01) ==
LOC: HO.LAB 06:00
PROVIDERS: PCP Internal Medicine; Visit Provider Internal Medicine
DX: E03.9 Hypothyroidism, unspecified (principal); R73.01 Impaired fasting glucose; E78.5 Hyperlipidemia, unspecified; M85.88 Other specified disorders of bone density and structure, other site; Z78.0 Asymptomatic menopausal state
CPT/HCPCS: 36415; 80048; 80061; 82306; 84439; 84443; 84450; 84460

== ENCOUNTER 2025-01-15 08:04 | Outpatient (AMB) | payer MEDICARE, SELFPAY ==
[2025-01-15 08:58] VITALS: BP 130/70; PULSE 62; RESP 16; TEMP 36.6; O2SAT 99; BMI 26.8
--- NOTE | 2025-01-15 08:58 | MHC.PC.OV ---
Vital Signs 01/15/25 08:58 Height 5 ft 1 in Weight 142 lb BMI 26.8 BP 130/70 Blood Pressure Location Rt brachial Position Sitting Respiration 16 Pulse 62 Pulse Source Pulse Oximeter Temp 97.9 F Temp Source Oral Pulse Oximetry (%) 99 Oxygen Delivery Method Room Air Intake Visit Reasons: Annual PE Intake Note: Pt is here today for her PE: Last mammogram 05/15/23, bone density scan 05/15/23 Allergies No Known Allergies Allergy (Verified 01/15/25 09:07) Medication List - Last Reconciled 01/15/25 by Barby Mckoy MD calcium carbonate (Calcium 600) 600 mg PO DAILY cholecalciferol (vitamin D3) 50 mcg PO DAILY clotrimazole-betamethasone 1-0.05 % 1 appl topical BID PRN 10 days levothyroxine 50 mcg PO DAILY Tobacco use date assessed: 01/15/25 Fall risk assessment: No Falls in past year Last assessed Fall Risk: 01/15/25 Dental Screening Dental Screen Date: 01/23/24 Did you have a dental visit in the last 12 months?: Yes Did you have a dental problem in the last 6 months where you did not have access to dental care?: No Was dental information given to patient?: Patient has dentist HPI Annual PE HPI Details 79 year-old lady with history acquired hypothyroidism, osteoarthritis, osteopenia lumbar spine and hyperlipidemia, here today for follow-up. Patient has been feeling well , compliant with taking her medications stays active. She had her last mammogram and bone density in April of 2023, latter showing presence of mild osteopenia in lumbar spine normal in left hip and thigh. Patient states that she does not want to get anymore screening mammograms but is agreeable to repeat another bone density scan. She has been taking calcium and vitamin-D 3 supplements and stays active does a lot of gardening and yd work, when the weather permits. Has been has recurrent pruritic rash under both breasts, usually appearing during warmer months needs a refill on her clotrimazole-betamethasone cream which she applies only as needed [facility] Medical History (Updated 01/15/25 @ 09:27 by Barby Mckoy MD) Impaired fasting glucose Hyperlipidemia Tendinitis of left shoulder Osteopenia of lumbar spine Osteoarthritis of fingers of both hands Breast cancer screening by mammogram Menopause Acquired hypothyroidism Surgical History No pertinent past surgical history Family History Father Medical history non-contributory Mother Medical history non-contributory Brother No problems noted. Brother No problems noted. Son No problems noted. Daughter No problems noted. Social History Housing: House Alcohol intake: never Patient Tobacco Use Status: Never used Tobacco e-Cigarette/Vaping Use: Never Used Second Hand Smoke Exposure: No Current occupational status: unemployed Cognitive needs: No Hearing needs: No Vision needs: No Questionnaire PHQ-9 Over the last 2 weeks, how often have you been bothered by any of the following problems? 1. Little interest or pleasure in doing things: not at all 2. Feeling down, depressed, or hopeless: not at all 3. Trouble falling or staying asleep, or sleeping too much: not at all 4. Feeling tired or having little energy: not at all 5. Poor appetite or overeating: not at all 6. Feeling bad about yourself - or that you are a failure or have let yourself or your family down: not at all 7. Trouble concentrating on things, such as reading the newspaper or watching television: not at all 8. Moving or speaking so slowly that other people could have noticed. Or the opposite - being so fidgety or restless that you have been moving around a lot more than usual: not at all 9. Thoughts that you would be better off or of hurting yourself in some way: not at all Total score: 0 Depression Screening Interpretation: Negative Depression Screening Done: Yes 16934 - PHQ-9 Billing: Yes Source: Developed by Drs. Abram Morfin, Erlinda Lindsay, Carlos Bueno and colleagues, with an educational fredy from [employer]. Thrive Questionnaire Date Thrive assessed: 01/03/24 AUDIT C Alcohol Use Questionnaire (AUDIT-C) 1. How often do you have a drink containing alcohol?: Never Total Score: 0 ASHLEY-7 AMB Questionnaire ASHLEY-7 Date ASHLEY - 7 assessed: 01/15/25 Feeling nervous, anxious, or on edge: 0 = Not at all Not being able to stop or control worryin = Not at all Worrying too much about different things: 0 = Not at all Trouble relaxin = Not at all Being so restless that it is hard to sit still: 0 = Not at all Becoming easily annoyed or irritable: 0 = Not at all Feeling afraid as if something awful might happen: 0 = Not at all Total ASHLEY-7 score (0-4 normal; 5-9 mild; 10-14 moderate; 15-21 severe): 0 Source: Developed by Drs. Abram Morfin, Erlinda Lindsay, Carlos Bueno and colleagues, with an educational fredy from [employer]. ASHLEY-7 Assessment Billing ASHLEY-7 Assessment Tool: ASHLEY-7 Assessment 55486 Review of Systems Const Denies body aches, Denies fatigue, Denies fever(s), Denies headache(s), Denies lethargy, Denies poor appetite and Denies weakness Eyes Denies change in vision ENT Denies dizziness, Denies headache(s), Denies nasal congestion, Denies nasal discharge and Denies sore throat Card Denies chest pain, Denies lightheadedness, Denies palpitations and Denies dyspnea Resp Denies chest congestion, Denies cough, Denies dyspnea and Denies wheezing GI Denies abdominal pain, Denies change in bowel habits and Denies heartburn Reports no additional complaints Musc Reports as per HPI, Reports arthralgias (Fingers both hands and left shoulder), Denies joint swelling, Denies muscle weakness and Reports stiffness Skin/Breast Denies lesions and Denies rash Neuro Details: No history of falls Denies dizziness, Denies headache(s) and Denies weakness Psych Reports no additional complaints Endo Denies fatigue, Denies polydipsia, Denies polyuria and Denies palpitations Corey/Lymph Denies easy bruising Aller/Immun Denies seasonal rhinorrhea and Denies wheezing Physical exam (Primary Care) Vital Signs: Last Vital Signs Temp 97.9 F 01/15/25 08:58 Pulse 62 01/15/25 08:58 Resp 16 01/15/25 08:58 BP 130/70 01/15/25 08:58 Pulse Ox 99 01/15/25 08:58 Oxygen Delivery Method Room Air 01/15/25 08:58 BMI result Body Mass Index 26.8 Tobacco/Smoking Status: Tobacco use Status Tobacco use date assessed 01/15/25 01/15/25 08:59 Patient Tobacco Use Status Never used Tobacco 01/15/25 08:59 e-Cigarette/Vaping Use Never Used 01/15/25 08:59 PHQ-9: PHQ-9 Score PHQ-9: Total score 0 01/15/25 09:02 Depression Screening Interpretation: Negative Thrive Assessment: Date of Thrive Assessment Date Thrive assessed 01/03/24 01/15/25 08:59 Const General: cooperative, comfortable and no acute distress Orientation/consciousness: patient oriented x3 HENMO General nose exam: No nasal discharge present Mouth: oropharynx normal and moist mucous membranes Eyes Pupils: Equal, round and reactive pupils present Neck Other: Thyroid nonpalpable Neck: Yes full ROM, Yes no lymphadenopathy and Yes supple Resp Effort & Inspection: normal respiratory effort and able to speak in complete sentences Auscultation: clear to auscultation bilaterally Cardio Rate: regular rate Rhythm: regular rhythm Heart sounds: S1 normal heart sound present and S2 normal heart sound present GI Inspection: Yes normal to inspection Palpation (GI): Soft to palpation, nontender and no masses Auscultation: normal bowel sounds Back/Spine/Pelvis Back: No back tenderness Skin Other: Erythematous slightly moist rash under both breasts Neuro General: patient oriented x3, gait normal, tone normal, moves all extremities, Normal light touch and pain sensation and no focal motor deficits Cranial nerves: Yes Equal, round and reactive pupils present Cognition (Neuro): normal cognition Gait exam (Neuro): Normal gait present Motor exam (neuro): 5/5 motor strength present throughout Extrem Other: Positive Heberden's nodes noted in fingers of both hands right more than the left General: Yes full ROM, Yes no pedal edema and Yes normal gait Coding Level of Care Code Est Pt Prev Care >65y(70607) Diagnoses Annual visit for general adult medical examination with abnormal findings Z00.01 Acquired hypothyroidism E03.9 Osteoarthritis of fingers of both hands M19.041; M19.042 Osteopenia of lumbar spine M85.88 Pure hypercholesterolemia E78.00 Hyperlipidemia type: pure hypercholesterolemia Impaired fasting glucose R73.01 Advanced directives, counseling/discussion Z71.89 Additional Codes PHQ-9 - 93268 - PHQ-9 Billing: Yes ([id number]) ASHLEY-7 Assessment Billing - ASHLEY-7 Assessment Tool: ASHLEY-7 Assessment 82529 ([id number]) Assessment & Plan Assessment & Plan (1) Annual visit for general adult medical examination with abnormal findings: Code(s): Z00.01 - Encounter for general adult medical examination with abnormal findings Plan: Fasting labs ordered today. Patient advised to do at least an eye exam every 2 years. Patient does not want to get another screening mammogram, but agreeable to getting another the bone density scan which was ordered. Patient does not want to get any vaccinations (2) Acquired hypothyroidism: Code(s): E03.9 - Hypothyroidism, unspecified Category: Medical Plan: TSH and free T4 ordered, currently on levothyroxine 50 mcg daily. Patient states that she is feeling well on current dose (3) Osteoarthritis of fingers of both hands: Code(s): M19.041 - Primary osteoarthritis, right hand; M19.042 - Primary osteoarthritis, left hand Category: Medical Plan: Takes an occasional Tylenol as needed for joint pain (4) Osteopenia of lumbar spine: Code(s): M85.88 - Other specified disorders of bone density and structure, other site Category: Medical Plan: Repeat bone density scan ordered, continue with calcium supplements and vitamin-D supplements (5) Hyperlipidemia: Code(s): E78.5 - Hyperlipidemia, unspecified Category: Medical Qualifiers: Hyperlipidemia type: pure hypercholesterolemia Qualified Code(s): E78.00 - Pure hypercholesterolemia, unspecified Plan: Repeat another fasting lipid panel, reinforced importance of following a low-cholesterol diet and getting regular exercise (6) Impaired fasting glucose: Code(s): R73.01 - Impaired fasting glucose Category: Medical Plan: Previous fasting glucose levels were elevated, will repeat another fasting glucose level, continue with adherence to healthy eating habits and getting regular exercise (7) Advanced directives, counseling/discussion: Code(s): Z71.89 - Other specified counseling Plan: Initiated the conversation about Advanced Directives. Advanced Directives help patients prepare for current and future decisions about their medical treatment and place of care. Discussed with patient that it is a process where a patients current condition and prognosis are reviewed, their wishes for information regarding their illness are elicited, and likely medical dilemmas are presented and options discussed. Healthcare proxy form completed today. MOLST form was discussed with patient but did not fill on this visit, states that she wants to discuss this 1st with her . These forms can be amended as needed, reviewed yearly and make changes as needed Orders: Orders Alanine Aminotransferase Today E03.9 - Hypothyroidism, unspecified, E78.5 - Hyperlipidemia, unspecified, M19.041 - Primary osteoarthritis, right hand, M19.042 - Primary osteoarthritis, left hand, M85.88 - Other specified disorders of bone density and structure, other site, R73.01 - Impaired fasting glucose, Z00.01 - Encounter for general adult medical examination with abnormal findings, Z78.0 - Asymptomatic menopausal state Thyroid Stimulating Hormone Today E03.9 - Hypothyroidism, unspecified, E78.5 - Hyperlipidemia, unspecified, M19.041 - Primary osteoarthritis, right hand, M19.042 - Primary osteoarthritis, left hand, M85.88 - Other specified disorders of bone density and structure, other site, R73.01 - Impaired fasting glucose, Z00.01 - Encounter for general adult medical examination with abnormal findings, Z78.0 - Asymptomatic menopausal state Free T4 (Free Thyroxine) Today E03.9 - Hypothyroidism, unspecified, E78.5 - Hyperlipidemia, unspecified, M19.041 - Primary osteoarthritis, right hand, M19.042 - Primary osteoarthritis, left hand, M85.88 - Other specified disorders of bone density and structure, other site, R73.01 - Impaired fasting glucose, Z00.01 - Encounter for general adult medical examination with abnormal findings, Z78.0 - Asymptomatic menopausal state Lipid Panel Today E03.9 - Hypothyroidism, unspecified, E78.5 - Hyperlipidemia, unspecified, M19.041 - Primary osteoarthritis, right hand, M19.042 - Primary osteoarthritis, left hand, M85.88 - Other specified disorders of bone density and structure, other site, R73.01 - Impaired fasting glucose, Z00.01 - Encounter for general adult medical examination with abnormal findings, Z78.0 - Asymptomatic menopausal state Aspartate Amino Transferase Today E03.9 - Hypothyroidism, unspecified, E78.5 - Hyperlipidemia, unspecified, M19.041 - Primary osteoarthritis, right hand, M19.042 - Primary osteoarthritis, left hand, M85.88 - Other specified disorders of bone density and structure, other site, R73.01 - Impaired fasting glucose, Z00.01 - Encounter for general adult medical examination with abnormal findings, Z78.0 - Asymptomatic menopausal state Hemoglobin and Hematocrit Today E03.9 - Hypothyroidism, unspecified, E78.5 - Hyperlipidemia, unspecified, M19.041 - Primary osteoarthritis, right hand, M19.042 - Primary osteoarthritis, left hand, M85.88 - Other specified disorders of bone density and structure, other site, R73.01 - Impaired fasting glucose, Z00.01 - Encounter for general adult medical examination with abnormal findings, Z78.0 - Asymptomatic menopausal state Glucose Fasting Today E03.9 - Hypothyroidism, unspecified, E78.5 - Hyperlipidemia, unspecified, M19.041 - Primary osteoarthritis, right hand, M19.042 - Primary osteoarthritis, left hand, M85.88 - Other specified disorders of bone density and structure, other site, R73.01 - Impaired fasting glucose, Z00.01 - Encounter for general adult medical examination with abnormal findings, Z78.0 - Asymptomatic menopausal state Vitamin D 25-OH Total Today E03.9 - Hypothyroidism, unspecified, E78.5 - Hyperlipidemia, unspecified, M19.041 - Primary osteoarthritis, right hand, M19.042 - Primary osteoarthritis, left hand, M85.88 - Other specified disorders of bone density and structure, other site, R73.01 - Impaired fasting glucose, Z00.01 - Encounter for general adult medical examination with abnormal findings, Z78.0 - Asymptomatic menopausal state XR DEXA axial skeleton Today M85.88 - Other specified disorders of bone density and structure, other site, Z78.0 - Asymptomatic menopausal state Medications: Refilled clotrimazole-betamethasone 1-0.05 % 1 appl topical BID 10 days PRN 45 grams 0RF rash cholecalciferol (vitamin D3) 50 mcg PO DAILY 90 caps 3RF M85.88 - Other specified disorders of bone density and structure, other site levothyroxine 50 mcg PO DAILY 90 tabs 4RF E03.9 - Hypothyroidism, unspecified
== END 2025-01-15 09:26 | disposition home or self-care (01) ==
LOC: HO.HMCC 08:05
PROVIDERS: PCP Internal Medicine; Visit Provider Internal Medicine
DX: Z00.01 Encounter for general adult medical examination with abnormal findings (principal); E03.9 Hypothyroidism, unspecified; M19.041 Primary osteoarthritis, right hand; M19.042 Primary osteoarthritis, left hand; M85.88 Other specified disorders of bone density and structure, other site; E78.00 Pure hypercholesterolemia, unspecified; R73.01 Impaired fasting glucose; Z71.89 Other specified counseling

== ENCOUNTER 2025-01-15 08:04 | Outpatient (REF) | payer MEDICARE, SELFPAY ==
[2025-01-15 13:26] LABS: Hematocrit 42.8 % (37.0-47.0); Hemoglobin 13.5 g/dl (12.0-16.0)
[2025-01-15 13:51] LABS: Alanine Aminotransferase 33 U/L (0-31); Aspartate Amino Transferase 35 U/L (5-31); Cholesterol 228 mg/dL (<200); Glucose Fasting 103 mg/dL (60-99); HDL Cholesterol 61 mg/dL (>40); LDL Cholesterol Calculated 146 mg/dL (<100); Triglycerides 108 mg/dL (<150)
[2025-01-15 14:00] LABS: Free T4 (Free Thyroxine) 1.04 ng/dL (0.71-1.85); Thyroid Stimulating Hormone 2.26 uIU/mL (0.32-4.0); Vitamin D 25-OH Total 99.6 ng/mL (>30)
== END 2025-01-15 08:05 | disposition home or self-care (01) ==
LOC: HO.HMGCLDS 08:04
PROVIDERS: PCP Internal Medicine; Visit Provider Internal Medicine
DX: Z00.01 Encounter for general adult medical examination with abnormal findings (principal); E03.9 Hypothyroidism, unspecified; M19.042 Primary osteoarthritis, left hand; M19.041 Primary osteoarthritis, right hand; M85.88 Other specified disorders of bone density and structure, other site; R73.01 Impaired fasting glucose; E78.00 Pure hypercholesterolemia, unspecified; Z78.0 Asymptomatic menopausal state; Z71.89 Other specified counseling
CPT/HCPCS: 36415; 80061; 82306; 82947; 84439; 84443; 84450; 84460; 85014; 85018; 96127; 99397

== ENCOUNTER 2025-05-19 08:28 | Outpatient (REF) | payer MEDICARE, SELFPAY ==
--- NOTE | ~2025-05-19 | MM_ITS ---
EXAMINATION: DXA BONE DENSITY AXIAL HISTORY: Z78.0 - Asymptomatic menopausal state TECHNIQUE: Nexway Dual energy absorptiometry (DEXA) of the lumbar spine, total left hip, and femoral neck was performed. COMPARISON: Comparison is made with the prior examination dated 05/15/2023. FINDINGS: The bone mineral density of the lumbar spine is 1.005 g/cm2, corresponding to a T-score of -1.3, and a Z-score of 0.6. This is indicative of osteopenia. This represents a BMD change of 2.3% compared to the prior exam. This is not statistically significant. The bone mineral density of the left total hip is 1.106 g/cm2, corresponding to a T-score of 0.8, and a Z-score of 2.9. This is indicative of normal bone mineral density. This represents a BMD change of 2.0% compared to the prior exam. This is not statistically significant. The bone mineral density of the left femoral neck is 0.984 g/cm2, corresponding to a T-score of -0.4, and a Z-score of 1.9. This is indicative of normal bone mineral density. This represents a BMD change of 0.8% compared to the prior exam. FRACTURE RISK: The FRAX index suggests a ten year probability of major osteoporotic fracture of 9.7%, and of hip fracture 1.6%. MM/XR DEXA axial skeleton IMPRESSION: Based on bone mineral density, and according to World Health Organization (WHO) criteria, the diagnosis is consistent with osteopenia. Statistically, 68% of repeat scans fall within 1 SD (+/- 0.010 g/cm2 for AP spine L1-L4) and 1 SD (+/- 0.012 g/cm2 for femur total) FRAX is a trademark of the [employer] [place] [facility] [employer], a World Health Organization (WHO) Collaborating Center. Electronically signed by: Abram Rushing MD 05/19/2025 09:11 AM EDT
== END 2025-05-19 08:29 | disposition home or self-care (01) ==
LOC: HO.MAMMO 08:28
PROVIDERS: PCP Internal Medicine; Visit Provider Internal Medicine
DX: Z13.820 Encounter for screening for osteoporosis (principal); Z78.0 Asymptomatic menopausal state; M85.88 Other specified disorders of bone density and structure, other site
CPT/HCPCS: 77080

== ENCOUNTER → 2025-05-19 08:45 | Outpatient (BNV) | payer MEDICARE, SELFPAY | PROVIDERS: PCP Internal Medicine; Visit Provider Radiology Diagnostic Radiology | DX: E28.39 Other primary ovarian failure (principal) | CPT/HCPCS: 77080 ==